=== PATIENT | male | born 1960 | race Caucasian/White ===

== ENCOUNTER 2019-09-04 12:38 | Inpatient (IN) | payer MEDICARE, MEDICAID ==
--- NOTE | 2019-09-04 12:46 | EDM.PDOC ---
ED HPI GENERAL MEDICAL PROBLEM - General Stated Complaint: EAR INFECTION, LETHARGIC Time Seen by Provider: 09/04/19 12:46 - History of Present Illness INITIAL COMMENTS - FREE TEXT/NARRATIVE: fever, decreased ilya x 3 days, pt with hx of frequent ear infections, history of alzheimer's, per NH staff pt is awake and talking most times, today lethargic. ED ROS GENERAL - Review of Systems Review Of Systems: Unable To Obtain Reason Not Obtained: Pt non responsive hx of alzheimer's ED EXAM, GENERAL - Physical Exam Exam: See Below Free Text/Narrative:: wbc 17.5 with left shift, ua positive for nit, mitesh, will given 1G rocephin in er. Discussed with PCP Dr. Bernstein who will admit to her service. Exam Limited By: Altered Mental Status General Appearance: Lethargic Eye Exam: Bilateral Eye: PERRL Ears: Normal External Exam, Normal Canal, Normal TMs Nose: Normal Inspection, Normal Mucosa, No Blood Head: Atraumatic, Normocephalic Respiratory/Chest: No Respiratory Distress, Lungs Clear, Normal Breath Sounds, No Accessory Muscle Use, Chest Non-Tender Cardiovascular: Normal Peripheral Pulses GI/Abdominal: Normal Bowel Sounds, Soft, Non-Tender, No Organomegaly, No Distention, No Abnormal Bruit, No Mass Extremities: Normal Inspection, Non-Tender, No Pedal Edema, Normal Capillary Refill Skin Exam: Warm, Dry, Intact, Normal Color, No Rash Course - Orders/Labs/Meds Orders: Active Orders 24 hr Category Date Time Status Admission Status [Patient Status] [ADT] Routine ADT 09/04/19 14:23 Ordered Chest 1V Frontal [CR] Stat Exams 09/04/19 14:22 Ordered CULTURE BLOOD [BC] Stat Lab 09/04/19 13:08 Received CULTURE BLOOD [BC] Stat Lab 09/04/19 13:13 Received CULTURE URINE [RM] Stat Lab 09/04/19 12:58 Received Sodium Chloride 0.9% [Normal Saline] 1,000 ml Med 09/04/19 13:00 Active IV ASDIRECTED cefTRIAXone [Rocephin] Med 09/04/19 14:15 Ordered 1 gm IVPUSH DAILY Blood Culture x2 Reflex Set [OM.PC] Stat Oth 09/04/19 12:57 Ordered Medication Orders Ceftriaxone Sodium (Rocephin) 1 gm IVPUSH DAILY [facility] Sodium Chloride (Normal Saline) 1,000 mls @ 125 mls/hr IV ASDIRECTED THAIS Last Admin: 09/04/19 12:52 Dose: 125 mls/hr Labs: Laboratory Tests 09/04/19 09/04/19 09/04/19 Range/Units 12:58 13:08 13:08 WBC 17.5 H (4.0-10.0) x10^3/uL RBC 3.64 L (4.5-6.0) x10^6/uL Hgb 12.0 L (14.0-18.0) g/dL Hct 36.6 L (40.0-52.0) % MCV 100.5 H (78.0-93.0) fL MCH 33.0 H (26.0-32.0) pg MCHC 32.8 (32.0-36.0) g/dL RDW Coeff of Lev 13.2 (10.0-15.0) % Plt Count 149 (130-400) x10^3/uL Neut % (Auto) 83.3 H (50.0-80.0) % Lymph % (Auto) 8.6 L (25.0-50.0) % Giles % (Auto) 7.9 (2.0-11.0) % Eos % (Auto) 0.1 (0.0-4.0) % Baso % (Auto) 0.1 L (0.2-1.2) % Sodium 144 (136-145) mmol/L Potassium 3.7 (3.5-5.1) mmol/L Chloride 106 (98-107) mmol/L Carbon Dioxide 28 (21-32) mmol/L Anion Gap 13.7 (10-20) mmol/L BUN 15 (7-18) mg/dL Creatinine 0.8 (0.70-1.30) mg/dL Est Cr Clr Drug Dosing TNP Estimated GFR (MDRD) > 60 Glucose 117 H (74-106) mg/dL Lactic Acid (0.4-2.0) mmol/L Calcium 9.9 (8.5-10.1) mg/dL Corrected Calcium 10.62 H (8.5-10.1) mg/dL Total Bilirubin 1.0 (0.2-1.0) mg/dL AST 18 (15-37) U/L ALT 20 (16-63) U/L Alkaline Phosphatase 90 (46-116) U/L Total Protein 7.2 (6.4-8.2) g/dL Albumin 3.1 L (3.4-5.0) g/dL Globulin 4.1 Albumin/Globulin Ratio 0.76 Urine Color Dark yellow H (YELLOW) Urine Appearance Cloudy H (CLEAR) Urine pH 6.0 (5.0-8.0) Ur Specific [place] >=1.030 Urine Protein 100 H (NEGATIVE) mg/dL Urine Glucose (UA) Negative (NEGATIVE) mg/dL Urine Ketones Negative (NEGATIVE) mg/dL Urine Occult Blood Moderate H (NEGATIVE) Urine Nitrite Positive H (NEGATIVE) Urine Bilirubin Small H (NEGATIVE) Urine Urobilinogen 0.2 (0.2) EU/dL Ur Leukocyte Esterase Small H (NEGATIVE) Urine RBC 20-30 H (NOT SEEN) /HPF Urine WBC 10-20 H (NOT SEEN) /HPF Ur Squamous Epith Cells Few H (NEGATIVE) /HPF Urine Bacteria Moderate H (NEGATIVE) /HPF Urine Mucus Few H (NEGATIVE) /LPF 09/04/19 Range/Units 13:08 WBC (4.0-10.0) x10^3/uL RBC (4.5-6.0) x10^6/uL Hgb (14.0-18.0) g/dL Hct (40.0-52.0) % MCV (78.0-93.0) fL MCH (26.0-32.0) pg MCHC (32.0-36.0) g/dL RDW Coeff of Lev (10.0-15.0) % Plt Count (130-400) x10^3/uL Neut % (Auto) (50.0-80.0) % Lymph % (Auto) (25.0-50.0) % Giles % (Auto) (2.0-11.0) % Eos % (Auto) (0.0-4.0) % Baso % (Auto) (0.2-1.2) % Sodium (136-145) mmol/L Potassium (3.5-5.1) mmol/L Chloride (98-107) mmol/L Carbon Dioxide (21-32) mmol/L Anion Gap (10-20) mmol/L BUN (7-18) mg/dL Creatinine (0.70-1.30) mg/dL Est Cr Clr Drug Dosing Estimated GFR (MDRD) Glucose (74-106) mg/dL Lactic Acid 1.1 (0.4-2.0) mmol/L Calcium (8.5-10.1) mg/dL Corrected Calcium (8.5-10.1) mg/dL Total Bilirubin (0.2-1.0) mg/dL AST (15-37) U/L ALT (16-63) U/L Alkaline Phosphatase (46-116) U/L Total Protein (6.4-8.2) g/dL Albumin (3.4-5.0) g/dL Globulin Albumin/Globulin Ratio Urine Color (YELLOW) Urine Appearance (CLEAR) Urine pH (5.0-8.0) Ur Specific Franklin Urine Protein (NEGATIVE) mg/dL Urine Glucose (UA) (NEGATIVE) mg/dL Urine Ketones (NEGATIVE) mg/dL Urine Occult Blood (NEGATIVE) Urine Nitrite (NEGATIVE) Urine Bilirubin (NEGATIVE) Urine Urobilinogen (0.2) EU/dL Ur Leukocyte Esterase (NEGATIVE) Urine RBC (NOT SEEN) /HPF Urine WBC (NOT SEEN) /HPF Ur Squamous Epith Cells (NEGATIVE) /HPF Urine Bacteria (NEGATIVE) /HPF Urine Mucus (NEGATIVE) /LPF Meds: Medications Generic Name Dose Route Start Last Admin Trade Name Freq PRN Reason Stop Dose Admin Ceftriaxone Sodium 1 gm 09/04/19 14:15 Rocephin IVPUSH DAILY [facility] Sodium Chloride 1,000 mls @ 125 mls/hr 09/04/19 13:00 09/04/19 12:52 Normal Saline IV 125 mls/hr ASDIRECTED THAIS Administration Departure - Departure Time of Disposition: 14:26 Disposition: Admitted As Inpatient 66 Condition: Fair Clinical Impression: UTI (urinary tract infection) - Discharge Information Referrals: Valarie Bernstein DO [Primary Care Provider] - Sepsis Event Note - Focused Exam Date Exam was Performed: 09/04/19 Time Exam was Performed: 14:26 - My Orders Last 24 Hours: My Active Orders 09/04/19 12:57 Blood Culture x2 Reflex Set [OM.PC] Stat 09/04/19 12:58 CULTURE URINE [RM] Stat 09/04/19 13:00 Sodium Chloride 0.9% [Normal Saline] 1,000 ml IV ASDIRECTED 09/04/19 13:08 CULTURE BLOOD [BC] Stat 09/04/19 13:13 CULTURE BLOOD [BC] Stat 09/04/19 14:15 cefTRIAXone [Rocephin] 1 gm IVPUSH DAILY 09/04/19 14:22 Chest 1V Frontal [CR] Stat 09/04/19 14:23 Admission Status [Patient Status] [ADT] Routine - Assessment/Plan Admission H&P: Please use this note as an admission H&P Last 24 Hours: My Active Orders 09/04/19 12:57 Blood Culture x2 Reflex Set [OM.PC] Stat 09/04/19 12:58 CULTURE URINE [RM] Stat 09/04/19 13:00 Sodium Chloride 0.9% [Normal Saline] 1,000 ml IV ASDIRECTED 09/04/19 13:08 CULTURE BLOOD [BC] Stat 09/04/19 13:13 CULTURE BLOOD [BC] Stat 09/04/19 14:15 cefTRIAXone [Rocephin] 1 gm IVPUSH DAILY 09/04/19 14:22 Chest 1V Frontal [CR] Stat 09/04/19 14:23 Admission Status [Patient Status] [ADT] Routine
[2019-09-04] MEDS: Sodium Chloride 0.9% 1,000 ML IV SCH ×3 (12:52→23:05)
[2019-09-04 13:47] LABS: CHLORIDE,CL 106 mmol/L (98-107); SODIUM,NA 144 mmol/L (136-145)
[2019-09-04 13:53] LABS: ANION GAP 13.7 mmol/L (10-20)
[2019-09-04] MEDS ORDERED: cefTRIAXone 1 GM Vial IVPUSH SCH (14:15)
--- NOTE | 2019-09-04 15:01 | CR ---
[id number] RAD/RAD Chest PA or AP 1V EXAM: FRONTAL CHEST INDICATION: RULE OUT INFECTION. COMPARISON: None. DISCUSSION: The heart is at upper limits of normal for size with borderline central vascular congestion. No infiltrates. A metallic object overlies the lower midline neck. IMPRESSION: 1. Borderline congestive heart failure. Alberto Zeng MD 09/04/19 1500 Thank you for allowing us to participate in the care of your patient.
[2019-09-04] MEDS ORDERED: Acetaminophen 650 MG Supp RECTAL ONE (15:02)
[2019-09-04] MEDS ORDERED: Bisacodyl 10 MG Supp RECTAL PRN (15:49)
[2019-09-04] MEDS ORDERED: Bisacodyl 5 MG Tab PO PRN (15:49)
[2019-09-04] MEDS ORDERED: Ibuprofen 200 MG Tab PO PRN (17:36)
[2019-09-04] MEDS: LORazepam 2 MG/ML SDV IVPUSH PRN (18:32)
[2019-09-04] MEDS: QUEtiapine 100 MG Tab PO SCH (19:43)
[2019-09-04] MEDS: traZODone 50 MG Tab PO SCH (19:43)
[2019-09-04] MEDS: Acetaminophen 325 MG Tab PO SCH (19:44)
[2019-09-04] MEDS: diphenhydrAMINE 25 MG Cap PO SCH (19:44)
[2019-09-04] MEDS: cefTRIAXone 1 GM Vial IVPUSH SCH (20:20)
--- NOTE | 2019-09-05 00:11 | HP ---
CHIEF COMPLAINT: Fever. HISTORY OF PRESENT ILLNESS: This is a 59-year-old resident of [facility] due to dementia, who has had a fever since Tuesday or 2 days. Yesterday, it was even up to 103, heart rate was 128. Today, it was 101.1. He had slept through the night. He received Tylenol. He could take fluids when offered. He did eat yesterday. He has had no cough. No vomiting. No bowel movement like for 4 days. No signs of a urine infection, but really cannot verbalize that. His urine has been quite concentrated. His lungs were clear. He otherwise does have a history of ear infections, but he just had pain all over per the nurse. Did not appear to be grabbing his ears. No drainage. They did not feel he had any swallowing difficulty. When he ambulated, he was quite unsteady. Recommendations were made to have him seen in the emergency room due to a sepsis workup. While there, it was discovered he likely had a UTI. He was moving his head. We did discuss with the after I saw him after workup that a lumbar puncture was not performed. She prefers the patient be treated with antibiotics, but avoid any aggressive treatments and focus on comfort as well. ALLERGIES: Include Levaquin, rash, hives; Augmentin, nausea, vomiting, diarrhea; and Demerol, fever, chills, and sweating. MEDICATION LIST: Reviewed from [facility]. It should be noted he recently started lamotrigine. Got his first dose 25 mg last night. He is also on Seroquel 200 three times a day, melatonin 10 mg daily, hydrocortisone cream, MiraLAX 17 g daily, Benadryl 3 times a day, senna 2 tabs twice a day, ammonium lactate cream to the feet, bisacodyl suppository, Zyprexa 30 mg daily, trazodone 25 in the morning and 100 at night, multivitamin daily, Prilosec daily, Tylenol 650 three times a day for pain, urea cream to the feet, Biofreeze gel, and albuterol inhaler as needed. PAST MEDICAL HISTORY: Includes the dementia with behavioral disturbance, frontotemporal, since around 2013, depression and anxiety, dysphagia. Reported no recent aspiration pneumonia, essential hypertension, but off medications due to hypotension. History of colon polyps, history of angina, history of smoking, Lewy body dementia reported, psychosis, seasonal allergies. SOCIAL HISTORY: The patient is . He moved to [facility] earlier this year. FAMILY HISTORY: Both parents are . His father had Alzheimer. His mother had dementia. REVIEW OF SYSTEMS: Unobtainable due to the patient's condition and mental status. PAST SURGICAL HISTORY: He had endoscopies, biopsies, colonoscopies, and diskectomy, cervical C6-7. PHYSICAL EXAMINATION: Vital Signs: On hospital admission, he did have a temp 101.5, pulse 117, blood pressure 152/76, respiratory rate 20, O2 of 18, he was 96% on room air. General: He was in mild distress. He was mostly not responsive. He was sort of trying to grab the urinal and urinate. Did open his eyes to verbal stimuli. His face was red and flushed. Heart: Regular rate and rhythm. S1, S2 without murmur. Lungs: Sounds are clear to auscultation on a limited exam due to patient effort. Abdomen: Nondistended. It is soft. Positive bowel sounds. Nontender. He did not grimace with pain when we moved his head, his neck, or his arms. Extremities: A few scabs, but no cellulitis or signs of infection. Genitourinary: His penis was examined. There is no drainage or discharge otherwise. Mental Status: He is completely disoriented. LABORATORY WORK: Shows white count 17.5, hemoglobin 12, platelets 149. Sodium 144, potassium 3.7, chloride 106, bicarb 28, BUN 15, creatinine 0.8, lactic 1.1, glucose 117, bilirubin 1, calcium 10.6, AST 18, ALT 20, alk phos 90, CRP 27.5, albumin 3.1. Urine did show 20-30 rbc's and 10-20 wbc's. This was not a cath specimen. It was dark yellow. DIAGNOSTIC DATA: Chest x-ray clear. No infiltrates. Blood cultures taken. ASSESSMENT: 1. Sepsis, likely source is a urinary tract infection. We will do a bladder scan. We will place his Rocephin at 1 g q.12 hours. 2. Dementia with behavioral disturbance. We will keep him on his home medications. There is concern that once he starts feeling better, he will start grabbing at things, trying to get out of bed. Therefore, we have some p.r.n. Ativan available. 3. History of hypertension. Blood pressure is mildly elevated. We will continue to monitor for now. He is getting IV fluids due to fevers and sepsis. 4. Lethargy likely due to infection. Discussed with his . We will see how he does over the next 12-24 hours. His ears were also inspected, which I forgot to mention in the physical exam. Right ear was clearly not infected. Left ear, mild redness, but no signs of obvious infection. Some wax was also in the canal. PLAN: The patient will be admitted for acute cares for sepsis and IV antibiotics for UTI. We will culture his urine. Blood cultures are pending. I am going to send off influenza screen as well as repeat his lactic acid. We will give him 1 more liter of fluids, Tylenol for fever and Motrin, DVT prophylaxis given his comfort care status, and hopefully this will be a short- term stay. We will hold off, but repeat lab work tomorrow and order some Lovenox or heparin if needed. Code level 5. Discussed with his . MARY: 09/04/2019 17:29:05 MODL: 09/05/2019 00:04:31 /[id number]
[2019-09-05] MEDS: Omeprazole 20 MG Cap.CR PO SCH (06:10)
[2019-09-05] MEDS: Sodium Chloride 0.9% 1,000 ML IV SCH (06:20)
[2019-09-05] MEDS: LORazepam 2 MG/ML SDV IVPUSH PRN ×4 (06:20→21:46)
[2019-09-05 07:16] LABS: CHLORIDE,CL 109 mmol/L (98-107); SODIUM,NA 146 mmol/L (136-145)
[2019-09-05 07:18] LABS: ANION GAP 15.9 mmol/L (10-20)
[2019-09-05] MEDS: QUEtiapine 100 MG Tab PO SCH ×3 (07:47→20:07)
[2019-09-05] MEDS: OLANZapine 10 MG Tab PO SCH ×2 (07:48→20:07)
[2019-09-05] MEDS: Acetaminophen 325 MG Tab PO SCH ×4 (07:50→21:47)
[2019-09-05] MEDS: traZODone 50 MG Tab PO SCH ×2 (07:50→20:06)
[2019-09-05] MEDS: diphenhydrAMINE 25 MG Cap PO SCH ×3 (07:51→20:07)
[2019-09-05] MEDS: Polyethylene Glycol 3350 Powder 17 GM Packet PO SCH (07:53)
[2019-09-05] MEDS ORDERED: Non-Formulary Medication 1 Each (Olanzapine [Olanzapine] 20 MG) PO SCH (08:00)
[2019-09-05] MEDS: cefTRIAXone 1 GM Vial IVPUSH SCH ×2 (08:43→20:08)
[2019-09-05] MEDS: Melatonin 3 MG Tab PO SCH ×2 (09:49→20:07)
[2019-09-05] MEDS: Enoxaparin 40 MG/0.4 ML Syringe SUBCUT SCH (09:54)
--- NOTE | 2019-09-05 10:06 | PN ---
Progress Note for LUANN LAZACNO Date: 09/05/2019 Room #: VM.218 SUBJECTIVE: This is hospital day #2 on a 59-year-old admitted with sepsis with likely source of a UTI. His influenza testing was negative. He was up and more alert, actually getting agitated, did get a dose of Ativan last evening and then one again this morning at 6 a.m. He is quite sleepy now. He only responds to painful stimuli. He is getting his IV antibiotic. He has been afebrile overnight. Bladder scan was negative per the nurse. He did eat 100% of his dinner last night. OBJECTIVE: Vital Signs: His temperature is 97.7, pulse 84, blood pressure 134/81, respiratory rate 18, O2 is 96 on room air. T-max here 101.5 at 5 [address] on [address] floor. There was also a 105 charted at around 2:30, however, nurses rechecked with a different device and it was only 99.6. HEART: Regular rate and rhythm. S1, S2, without murmur. LUNGS: Lung sounds are clear to auscultation, but on limited effort. ABDOMEN: Nondistended. He did moan slightly when I palpated it, but it was soft. He also moaned when I touched his chest wall, his arms. Nursing staff had reported at the [facility] he had pain all over as well. EXTREMITIES: Otherwise warm, dry, no edema. MENTAL STATUS: He is lethargic. He has dementia at baseline. LABORATORY DATA: Lab work shows white count improved to 10.7, hemoglobin 11.4, platelets 155. Sodium 146, potassium 3.9, chloride 109, bicarb 25, BUN 12, creatinine 0.6, glucose 108, calcium 9.4. His CRP was up to 27.5 yesterday. Urine culture is pending. ASSESSMENT: 1. Sepsis due to a urinary tract infection. We will continue the IV Rocephin. Due to his size, initially he could have gotten 2 g, so I changed him to 1 g q.12 hours. 2. Dementia with behavioral disturbance. He is on his home medications. He was supposed to continue on lamotrigine which he only got 1 dose. We held that here. He can restart it on discharge. 3. History of hypertension. His blood pressures have been normal now since admission. 4. Lethargy due to infection and probably some Ativan this morning. We will continue current cares. PLAN: The patient will continue acute cares with IV antibiotics of Rocephin. He will be on fluids for about 3 more hours. Hopefully, he will be more up and alert then and drinking. We will await the urine culture to adjust antibiotics. He has Tylenol and Motrin available for fevers. I will start him on Lovenox 40 mg daily for DVT prophylaxis. Repeat lab work planned for tomorrow. He does have some mild anemia and mild hypernatremia, but we are going to hold off on any half-normal saline and push oral liquids. MKA: 09/05/2019 08:56:21 MODL: 09/05/2019 09:54:37 /[id number]
[2019-09-06] MEDS: Omeprazole 20 MG Cap.CR PO SCH (06:00)
[2019-09-06 07:06] LABS: CHLORIDE,CL 108 mmol/L (98-107); SODIUM,NA 146 mmol/L (136-145)
[2019-09-06 07:07] LABS: ANION GAP 16.9 mmol/L (10-20)
[2019-09-06] MEDS: Polyethylene Glycol 3350 Powder 17 GM Packet PO SCH (08:59)
[2019-09-06] MEDS: Enoxaparin 40 MG/0.4 ML Syringe SUBCUT SCH (09:00)
[2019-09-06] MEDS: diphenhydrAMINE 25 MG Cap PO SCH ×3 (09:00→19:35)
[2019-09-06] MEDS: QUEtiapine 100 MG Tab PO SCH ×3 (09:00→19:35)
[2019-09-06] MEDS: traZODone 50 MG Tab PO SCH ×2 (09:00→19:35)
[2019-09-06] MEDS: Acetaminophen 325 MG Tab PO SCH ×3 (09:00→19:35)
[2019-09-06] MEDS: cefTRIAXone 1 GM Vial IVPUSH SCH ×2 (09:01→21:07)
[2019-09-06] MEDS: OLANZapine 10 MG Tab PO SCH ×2 (09:01→19:35)
--- NOTE | 2019-09-06 09:53 | PCM.PN ---
- General Info Date of Service: 09/06/19 Subjective Update: 59 yo male hospital day #3 admitted for sepsis secondary to UTI. He is not able to give any history. Nursing staff note that he had an uneventful day yesterday. He has been eating and drinking ok with meals. He has periods of alertness and periods of sleepiness. His intake was much better yesterday in comparison to the day prior. He did have a fever last evening. - Review of Systems Systems Review Comment:: Unable to obtain due to patient's underlying dementia. - Patient Data Vitals - Most Recent: Last Vital Signs Temp 37.4 C 09/06/19 09:42 Pulse 80 09/06/19 09:42 Resp 20 09/06/19 09:42 BP 103/65 09/06/19 09:42 Pulse Ox 93 L 09/06/19 09:42 Weight - Most Recent: 83.915 kg I&O - Last 24 Hours: Intake & Output 09/05/19 09/06/19 09/06/19 22:59 06:59 14:59 Intake Total 670 300 Balance 670 300 Lab Results Last 24 Hours: Laboratory Results - last 24 hr 09/06/19 09/06/19 Range/Units 06:31 06:31 WBC 7.9 (4.0-10.0) x10^3/uL RBC 3.21 L (4.5-6.0) x10^6/uL Hgb 10.5 L (14.0-18.0) g/dL Hct 31.9 L (40.0-52.0) % MCV 99.4 H (78.0-93.0) fL MCH 32.7 H (26.0-32.0) pg MCHC 32.9 (32.0-36.0) g/dL RDW Coeff of Lev 11.8 (10.0-15.0) % Plt Count 192 (130-400) x10^3/uL Neut % (Auto) 74.5 (50.0-80.0) % Lymph % (Auto) 16.7 L (25.0-50.0) % Worth % (Auto) 6.2 (2.0-11.0) % Eos % (Auto) 2.3 (0.0-4.0) % Baso % (Auto) 0.3 (0.2-1.2) % Sodium 146 H (136-145) mmol/L Potassium 3.9 (3.5-5.1) mmol/L Chloride 108 H (98-107) mmol/L Carbon Dioxide 25 (21-32) mmol/L Anion Gap 16.9 (10-20) mmol/L BUN 15 (7-18) mg/dL Creatinine 0.6 L (0.70-1.30) mg/dL Est Cr Clr Drug Dosing 157.34 mL/min Estimated GFR (MDRD) > 60 Glucose 106 (74-106) mg/dL Calcium 9.4 (8.5-10.1) mg/dL Wade Results Last 24 Hours: Microbiology 09/04/19 12:58 Urine Culture - Final Urine, Catheterized Escherichia Coli 09/04/19 13:13 Aerobic Blood Culture - Preliminary Blood - Venous - Lab Draw NO GROWTH AFTER 1 DAY Anaerobic Blood Culture - Preliminary NO GROWTH AFTER 1 DAY 09/04/19 13:08 Aerobic Blood Culture - Preliminary Blood - Venous NO GROWTH AFTER 1 DAY Anaerobic Blood Culture - Preliminary NO GROWTH AFTER 1 DAY 09/04/19 16:50 MRSA Surveillance Culture - Final Nasal, Unspecified NO MRSA ISOLATED Med Orders - Current: Current Medications Acetaminophen (Tylenol) 650 mg PO TID [facility] Last Admin: 09/06/19 09:00 Dose: 650 mg Bisacodyl (Dulcolax) 5 mg PO ASDIRECTED PRN PRN Reason: Constipation Bisacodyl (Dulcolax) 10 mg RECTAL ASDIRECTED PRN PRN Reason: Constipation Ceftriaxone Sodium (Rocephin) 1 gm IVPUSH Q12H [facility] Last Admin: 09/06/19 09:01 Dose: 1 gm Diphenhydramine HCl (Benadryl) 25 mg PO TID [facility] Last Admin: 09/06/19 09:00 Dose: 25 mg Enoxaparin Sodium (Lovenox) 40 mg SUBCUT Q24H [facility] Last Admin: 09/06/19 09:00 Dose: 40 mg Ibuprofen (Motrin) 600 mg PO Q6H PRN PRN Reason: PAIN Lorazepam (Ativan) 1 mg IVPUSH Q4H PRN PRN Reason: Anxiety Last Admin: 09/05/19 21:46 Dose: 1 mg Melatonin (Melatonin) 9 mg PO BEDTIME [facility] Last Admin: 09/05/19 20:07 Dose: 9 mg Olanzapine (Zyprexa) 10 mg PO DAILY [facility] Last Admin: 09/06/19 09:01 Dose: 10 mg Olanzapine (Zyprexa) 10 mg PO BEDTIME [facility] Last Admin: 09/05/19 20:07 Dose: 10 mg Omeprazole (Omeprazole) 20 mg PO DAILY@0700 [facility] Last Admin: 09/06/19 06:00 Dose: 20 mg Polyethylene Glycol (Miralax) 17 gm PO DAILY [facility] Last Admin: 09/06/19 08:59 Dose: 17 gm Quetiapine Fumarate (Seroquel) 200 mg PO TID [facility] Last Admin: 09/06/19 09:00 Dose: 200 mg Senna/Docusate Sodium (Senna Plus) 2 tab PO BID [facility] Last Admin: 09/06/19 09:00 Dose: 2 tab Trazodone HCl (Trazodone) 25 mg PO DAILY [facility] Last Admin: 09/06/19 09:00 Dose: 25 mg Trazodone HCl (Trazodone) 100 mg PO BEDTIME [facility] Last Admin: 09/05/19 20:06 Dose: 100 mg Discontinued Medications Acetaminophen (Tylenol) 650 mg RECTAL NOW ONE Stop: 09/04/19 15:03 Last Admin: 09/04/19 18:32 Dose: Not Given Ceftriaxone Sodium (Rocephin) 1 gm IVPUSH DAILY [facility] Last Admin: 09/04/19 14:12 Dose: 1 gm Sodium Chloride (Normal Saline) 1,000 mls @ 125 mls/hr IV ASDIRECTED [facility] Last Admin: 09/05/19 06:20 Dose: 125 mls/hr Non-Formulary Medication (Olanzapine [Olanzapine]) 20 mg PO DAILY [facility] - Exam General: No Acute Distress, Other (Laying comfortably in bed until palpation of his abdomen at which time he does move in the bed) HEENT: Mucous Membr. Moist/[place] Neck: Supple, Trachea Midline, No Thyromegaly. No: Lymphadenopathy Lungs: Clear to Auscultation, Normal Respiratory Effort Cardiovascular: Regular Rate, Regular Rhythm, No Murmurs GI/Abdominal Exam: Normal Bowel Sounds, Soft, Non-Tender, No Organomegaly, No Distention, No Mass Extremities: Non-Tender, No Pedal Edema, Normal Capillary Refill Peripheral Pulses: 2+: Radial (L), Radial (R) Skin: Warm, Dry, Intact Sepsis Event Note - Evaluation Sepsis Screening Result: No Definite Risk - Focused Exam Vital Signs: Vital Signs Temp Temp Temp Pulse Resp BP Pulse Ox 09/06/19 09:42 37.4 C 80 20 103/65 93 L 09/06/19 05:05 36.8 C 79 20 113/62 94 L 09/06/19 01:52 36.6 C 82 19 107/60 93 L 09/05/19 22:17 37.1 C Date Exam was Performed: 09/06/19 Time Exam was Performed: 09:47 - Problem List & Annotations (1) Sepsis SNOMED Code(s): 69164571 Code(s): A41.9 - SEPSIS, UNSPECIFIED ORGANISM Status: Acute Current Visit : Yes Qualifiers: Sepsis type: sepsis due to unspecified organism Sepsis acute organ dysfunction status: without acute organ dysfunction Qualified Code(s): A41.9 - Sepsis, unspecified organism (2) UTI (urinary tract infection) SNOMED Code(s): 71781867 Code(s): N39.0 - URINARY TRACT INFECTION, SITE NOT SPECIFIED Status: Acute Current Visit: Yes Qualifiers: Urinary tract infection type: site unspecified Hematuria presence: with hematuria Qualified Code(s): N39.0 - Urinary tract infection, site not specified; R31.9 - Hematuria, unspecified (3) Dementia SNOMED Code(s): 47886520 Code(s): F03.90 - UNSPECIFIED DEMENTIA WITHOUT BEHAVIORAL DISTURBANCE Status: Chronic Current Visit: Yes Qualifiers: Dementia type: unspecified type Dementia behavioral disturbance: with behavioral disturbance Qualified Code(s): F03.91 - Unspecified dementia with behavioral disturbance (4) Lethargy SNOMED Code(s): 509546911 Code(s): R53.83 - OTHER FATIGUE Status: Acute Current Visit: Yes (5) Hypernatremia SNOMED Code(s): 224710454 Code(s): E87.0 - HYPEROSMOLALITY AND HYPERNATREMIA Status: Acute Current Visit: Yes (6) Anemia SNOMED Code(s): 556434477 Code(s): D64.9 - ANEMIA, UNSPECIFIED Status: Acute Current Visit: Yes Qualifiers: Anemia type: unspecified type Qualified Code(s): D64.9 - Anemia, unspecified (7) Hypertension SNOMED Code(s): 04770411 Code(s): I10 - ESSENTIAL (PRIMARY) HYPERTENSION Status: Chronic Current Visit: Yes Qualifiers: Hypertension type: essential hypertension Qualified Code(s): I10 - Essential (primary) hypertension - Problem List Review Problem List Initiated/Reviewed/Updated: Yes - My Orders Last 24 Hours: My Active Orders 09/07/19 05:11 BASIC METABOLIC PANEL,BMP [CHEM] Routine CBC WITH AUTO DIFF [HEME] Routine - Assessment Assessment:: 59 yo male hospital day #3 with sepsis secondary to UTI. Labs are improved significantly from admission. He is getting more alert but is apparently not back to his baseline yet. - Plan Plan:: #1 Sepsis, resolved - He is no longer meeting sepsis criteria at this time. - Is secondary to UTI. See below. #2 UTI - Urine culture shows lewis-susceptible E. coli. - Patient had a fever last evening; however, this was within 48 hours of starting antibiotics and his culture shows susceptibility to ceftriaxone. Therefore, will continue the ceftriaxone at this time. - Plan will be to switch him to oral antibiotics once he has been afebrile for > 24 hours. #3 Dementia with behavioral disturbance #4 Lethargy - His mental status is slowly and steadily improving. - Home medications have been continued. #5 Hypernatremia, mild #6 Anemia - Labs are stable today. - Will continue to monitor daily. #7 Hypertension - History of this but BP's have been low to normal since admission. Given fever last evening, he will remain on acute today - very likely will be [facility] No changes in care plan today. Lovenox for VTE prophylaxis. Patient is DNR/DNI/comfort measures - PCP confirmed with his on admission.
[2019-09-06] MEDS: LORazepam 2 MG/ML SDV IVPUSH PRN (16:53)
[2019-09-06] MEDS: Melatonin 3 MG Tab PO SCH (19:34)
[2019-09-07] MEDS: Omeprazole 20 MG Cap.CR PO SCH (06:13)
[2019-09-07 06:34] LABS: CHLORIDE,CL 108 mmol/L (98-107); SODIUM,NA 145 mmol/L (136-145)
[2019-09-07] MEDS: QUEtiapine 100 MG Tab PO SCH (07:42)
[2019-09-07] MEDS: diphenhydrAMINE 25 MG Cap PO SCH (07:42)
[2019-09-07] MEDS: OLANZapine 10 MG Tab PO SCH (07:42)
[2019-09-07] MEDS: Polyethylene Glycol 3350 Powder 17 GM Packet PO SCH (07:42)
[2019-09-07] MEDS: traZODone 50 MG Tab PO SCH (07:43)
[2019-09-07] MEDS: Acetaminophen 325 MG Tab PO SCH (07:43)
[2019-09-07] MEDS: Enoxaparin 40 MG/0.4 ML Syringe SUBCUT SCH (08:05)
[2019-09-07] MEDS: cefTRIAXone 1 GM Vial IVPUSH SCH (08:05)
--- NOTE | 2019-09-07 08:38 | PCM.DCSUM1 ---
Discharge Summary - Hospital Course Brief History: Mr. Howell is a 59 yo male who was admitted with a UTI after presenting with lethargy and fever. - Discharge Data Discharge Date: 09/07/19 Discharge Disposition: DC/Tfer to [facility] Condition: Good - Referral to Home Health Primary Care Physician: Valarie Bernstein DO - Discharge Diagnosis/Problem(s) (1) Sepsis SNOMED Code(s): 27754536 ICD Code: A41.9 - SEPSIS, UNSPECIFIED ORGANISM Status: Acute Current Visit: Yes Qualifiers: Sepsis type: sepsis due to unspecified organism Sepsis acute organ dysfunction status: without acute organ dysfunction Qualified Code(s): A41.9 - Sepsis, unspecified organism (2) UTI (urinary tract infection) SNOMED Code(s): 89592998 ICD Code: N39.0 - URINARY TRACT INFECTION, SITE NOT SPECIFIED Status: Acute Current Visit: Yes Qualifiers: Urinary tract infection type: site unspecified Hematuria presence: with hematuria Qualified Code(s): N39.0 - Urinary tract infection, site not specified; R31.9 - Hematuria, unspecified (3) Dementia SNOMED Code(s): 57845103 ICD Code: F03.90 - UNSPECIFIED DEMENTIA WITHOUT BEHAVIORAL DISTURBANCE Status: Chronic Current Visit: Yes Qualifiers: Dementia type: unspecified type Dementia behavioral disturbance: with behavioral disturbance Qualified Code(s): F03.91 - Unspecified dementia with behavioral disturbance (4) Lethargy SNOMED Code(s): 871471129 ICD Code: R53.83 - OTHER FATIGUE Status: Acute Current Visit: Yes (5) Hypernatremia SNOMED Code(s): 664507424 ICD Code: E87.0 - HYPEROSMOLALITY AND HYPERNATREMIA Status: Acute Current Visit: Yes (6) Anemia SNOMED Code(s): 362622009 ICD Code: D64.9 - ANEMIA, UNSPECIFIED Status: Acute Current Visit: Yes Qualifiers: Anemia type: unspecified type Qualified Code(s): D64.9 - Anemia, unspecified (7) Hypertension SNOMED Code(s): 10907065 ICD Code: I10 - ESSENTIAL (PRIMARY) HYPERTENSION Status: Chronic Current Visit: Yes Qualifiers: Hypertension type: essential hypertension Qualified Code(s): I10 - Essential (primary) hypertension - Patient Summary/Data Operative Procedure(s) Performed: none Complications: none Consults: none Labs Pending at D/C: none Recommended Follow-up Testing/Procedures: none Planned Operative Procedure(s) after DC: none Hospital Course: The patient was admitted and started on IV ceftriaxone. He was also given IV fluids as he was not alert enough to eat and drinking. His mental status progressively improved and he is back to his baseline as of this morning. He has been eating and drinking well for the past 24 hours and has been swallowing his medications without any issues. His IV fluids were stopped nearly 48 hours ago. His urine culture came back showing E. coli that is lewis-susceptible. He was continued on the IV antibiotics throughout his hospital stay given fever in the late afternoon 06/17. He will be transitioned to cefdinir (given tolerance of ceftriaxone despite allergy to amoxicillin) to complete a 7 day course. - Patient Instructions Diet: Usual Diet as Tolerated Driving: Do Not Drive Showering/Bathing: May Shower Notify Provider of: Fever - Discharge Plan *PRESCRIPTION DRUG MONITORING PROGRAM REVIEWED*: No *COPY OF PRESCRIPTION DRUG MONITORING REPORT IN PATIENT ADALGISA: No Prescriptions/Med Rec: Cefdinir 300 mg PO BID #6 capsule Home Medications: Home Meds Acetaminophen [Tylenol] 650 mg PO TID 09/04/19 [History] Albuterol [Proventil HFA] 2 puff INH Q4H PRN 09/04/19 [History] Ammonium Lactate 1 applic TOP DAILY PRN 09/04/19 [History] Bisacodyl 5 mg PO ASDIRECTED PRN 09/04/19 [History] Bisacodyl 10 mg RC ASDIRECTED PRN 09/04/19 [History] Hydrocortisone [Hydrocortisone 1% Crm] 1 applic TOP DAILY 09/04/19 [History] Melatonin 10 mg PO BEDTIME 09/04/19 [History] Menthol [Biofreeze] 1 applic TOP QID PRN 09/04/19 [History] Multivitamin [Daily Multiple Vitamin] 1 tab PO DAILY 09/04/19 [History] OLANZapine [Olanzapine] 10 mg PO DAILY 09/04/19 [History] OLANZapine [Olanzapine] 20 mg PO DAILY 09/04/19 [History] Omeprazole 20 mg PO DAILY@0700 09/04/19 [History] Polyethylene Glycol 3350 [MiraLAX] 17 gm PO DAILY 09/04/19 [History] QUEtiapine Fumarate [Seroquel] 200 mg PO TID 09/04/19 [History] Sennosides/Docusate Sodium [Senna Plus 8.6-50 mg Tablet] 2 tab PO BID 09/04/19 [ History] Urea [Urea 20% Crm] 1 applic TOP Q48H PRN 09/04/19 [History] diphenhydrAMINE HCl [Benadryl Allergy] 25 mg PO TID 09/04/19 [History] lamoTRIgine [Lamotrigine] 25 mg PO DAILY 09/04/19 [History] traZODone HCl [Trazodone HCl] 25 mg PO DAILY 09/04/19 [History] traZODone HCl [Trazodone HCl] 100 mg PO BEDTIME 09/04/19 [History] Cefdinir 300 mg PO BID #6 capsule 09/07/19 [Rx] Forms: ED Department Discharge Referrals: Valarie Bernstein DO [Primary Care Provider] - - Discharge Summary/Plan Comment DC Time >30 min.: No - General Info Date of Service: 09/07/19 Subjective Update: 59 yo hospital day #4 for sepsis secondary to UTI. Patient is not able to give any history. Nursing staff note he is alert and acting like his usual self this morning. He has been able to eat and drink without any issues over the past 24 hours. No fever since late in the day 09/05. - Review of Systems Systems Review Comment: Unable to obtain due to severe underlying dementia - Patient Data Vitals - Most Recent: Last Vital Signs Temp 37.1 C 09/07/19 05:05 Pulse 71 09/07/19 05:05 Resp 18 09/07/19 05:05 BP 119/69 09/07/19 05:05 Pulse Ox 97 09/07/19 05:05 Weight - Most Recent: 83.915 kg I&O - Last 24 hours: Intake & Output 09/06/19 09/07/19 09/07/19 22:59 06:59 14:59 Intake Total 120 300 Balance 120 300 Lab Results - Last 24 hrs: Laboratory Results - last 24 hr 09/07/19 09/07/19 Range/Units 06:13 06:13 WBC 5.6 (4.0-10.0) x10^3/uL RBC 3.13 L (4.5-6.0) x10^6/uL Hgb 10.4 L (14.0-18.0) g/dL Hct 31.1 L (40.0-52.0) % MCV 99.4 H (78.0-93.0) fL MCH 33.2 H (26.0-32.0) pg MCHC 33.4 (32.0-36.0) g/dL RDW Coeff of Lev 11.7 (10.0-15.0) % Plt Count 191 (130-400) x10^3/uL Neut % (Auto) 60.6 (50.0-80.0) % Lymph % (Auto) 25.5 (25.0-50.0) % [place] % (Auto) 8.5 (2.0-11.0) % Eos % (Auto) 5.0 H (0.0-4.0) % Baso % (Auto) 0.4 (0.2-1.2) % Sodium 145 (136-145) mmol/L Potassium 4.0 (3.5-5.1) mmol/L Chloride 108 H (98-107) mmol/L Carbon Dioxide 27 (21-32) mmol/L Anion Gap 14.0 (10-20) mmol/L BUN 13 (7-18) mg/dL Creatinine 0.6 L (0.70-1.30) mg/dL Est Cr Clr Drug Dosing 157.34 mL/min Estimated GFR (MDRD) > 60 Glucose 102 (74-106) mg/dL Calcium 9.6 (8.5-10.1) mg/dL MARQUIS Results - Last 24 hrs: Microbiology 09/04/19 13:13 Aerobic Blood Culture - Preliminary Blood - Venous - Lab Draw NO GROWTH AFTER 2 DAYS Anaerobic Blood Culture - Preliminary NO GROWTH AFTER 2 DAYS 09/04/19 13:08 Aerobic Blood Culture - Preliminary Blood - Venous NO GROWTH AFTER 2 DAYS Anaerobic Blood Culture - Preliminary NO GROWTH AFTER 2 DAYS 09/04/19 12:58 Urine Culture - Final Urine, Catheterized Escherichia Coli Med Orders - Current: Current Medications Acetaminophen (Tylenol) 650 mg PO TID THAIS Last Admin: 09/07/19 07:43 Dose: 650 mg Bisacodyl (Dulcolax) 5 mg PO ASDIRECTED PRN PRN Reason: Constipation Last Admin: 09/07/19 07:42 Dose: 5 mg Bisacodyl (Dulcolax) 10 mg RECTAL ASDIRECTED PRN PRN Reason: Constipation Ceftriaxone Sodium (Rocephin) 1 gm IVPUSH Q12H [facility] Last Admin: 09/07/19 08:05 Dose: 1 gm Diphenhydramine HCl (Benadryl) 25 mg PO TID [facility] Last Admin: 09/07/19 07:42 Dose: 25 mg Enoxaparin Sodium (Lovenox) 40 mg SUBCUT Q24H [facility] Last Admin: 09/07/19 08:05 Dose: 40 mg Ibuprofen (Motrin) 600 mg PO Q6H PRN PRN Reason: PAIN Lorazepam (Ativan) 1 mg IVPUSH Q4H PRN PRN Reason: Anxiety Last Admin: 09/06/19 16:53 Dose: 1 mg Melatonin (Melatonin) 9 mg PO BEDTIME [facility] Last Admin: 09/06/19 19:34 Dose: 9 mg Olanzapine (Zyprexa) 10 mg PO DAILY [facility] Last Admin: 09/07/19 07:42 Dose: 10 mg Olanzapine (Zyprexa) 10 mg PO BEDTIME [facility] Last Admin: 09/06/19 19:35 Dose: 10 mg Omeprazole (Omeprazole) 20 mg PO DAILY@0700 [facility] Last Admin: 09/07/19 06:13 Dose: 20 mg Polyethylene Glycol (Miralax) 17 gm PO DAILY [facility] Last Admin: 09/07/19 07:42 Dose: 17 gm Quetiapine Fumarate (Seroquel) 200 mg PO TID [facility] Last Admin: 09/07/19 07:42 Dose: 200 mg Senna/Docusate Sodium (Senna Plus) 2 tab PO BID [facility] Last Admin: 09/07/19 07:42 Dose: 2 tab Trazodone HCl (Trazodone) 25 mg PO DAILY [facility] Last Admin: 09/07/19 07:43 Dose: 25 mg Trazodone HCl (Trazodone) 100 mg PO BEDTIME [facility] Last Admin: 09/06/19 19:35 Dose: 100 mg Discontinued Medications Acetaminophen (Tylenol) 650 mg RECTAL NOW ONE Stop: 09/04/19 15:03 Last Admin: 09/04/19 18:32 Dose: Not Given Ceftriaxone Sodium (Rocephin) 1 gm IVPUSH DAILY [facility] Last Admin: 09/04/19 14:12 Dose: 1 gm Sodium Chloride (Normal Saline) 1,000 mls @ 125 mls/hr IV ASDIRECTED [facility] Last Admin: 09/05/19 06:20 Dose: 125 mls/hr Non-Formulary Medication (Olanzapine [Olanzapine]) 20 mg PO DAILY THAIS - Exam General: Reports: Alert, No Acute Distress HEENT: Reports: Mucous Membr. Moist/[place] Neck: Reports: Supple, Trachea Midline, No Thyromegaly. Denies: Lymphadenopathy Lungs: Reports: Clear to Auscultation, Normal Respiratory Effort Cardiovascular: Reports: Regular Rate, Regular Rhythm, No Murmurs GI/Abdominal Exam: Normal Bowel Sounds, Soft, Non-Tender, No Organomegaly, No Distention, No Mass Extremities: Non-Tender, No Pedal Edema, Normal Capillary Refill Skin: Reports: Warm, Dry, Intact
== END 2019-09-07 10:30 | DRG 872 ==
LOC: VM.ED 12:38 → VM.MS 14:23
PROVIDERS: ADMIT Internal Medicine; ATTEND Internal Medicine
DX: A41.9 Sepsis, unspecified organism (principal); N39.0 Urinary tract infection, site not specified; F02.80 Dementia in other diseases classified elsewhere, unspecified severity, without behavioral disturbance, psychotic disturbance, mood disturbance, and anxiety; E87.0 Hyperosmolality and hypernatremia; F02.81 Dementia in other diseases classified elsewhere, unspecified severity, with behavioral disturbance; R31.9 Hematuria, unspecified; D64.9 Anemia, unspecified; I10 Essential (primary) hypertension; B96.20 Unspecified Escherichia coli [E. coli] as the cause of diseases classified elsewhere; Z66 Do not resuscitate; F32.9 Major depressive disorder, single episode, unspecified; G31.83 Neurocognitive disorder with Lewy bodies; F41.9 Anxiety disorder, unspecified; Z86.010 Personal history of colon polyps; Z87.891 Personal history of nicotine dependence; Z79.899 Other long term (current) drug therapy; Z88.1 Allergy status to other antibiotic agents; Z88.8 Allergy status to other drugs, medicaments and biological substances
CPT/HCPCS: 36415; 80053; 81001; 83605; 85025; 87040 ×2; 87086; 87088; 87186; 99283; 99285; J0696; J7030; 51798; 71045; 80048; 86140; 87804; 87804-59; A9270-GY; J1650; J2060

== ENCOUNTER 2020-02-25 11:46 | Inpatient (IN) | payer MEDICARE, MEDICAID, OTHER ==
[~2020-02-25 11:46] MED LIST: Clindamycin Phosphate 900 MG in Sodium Chloride 0.9% 100 ML IV ONE
--- NOTE | 2020-02-25 11:50 | EDM.PDOC ---
ED HPI GENERAL MEDICAL PROBLEM - General Chief Complaint: Respiratory Problem Time Seen by Provider: 02/25/20 11:10 Source of Information: Reports: EMS, Residential Records History Limitations: Reports: Altered Mental Status. Denies: No Limitations - History of Present Illness INITIAL COMMENTS - FREE TEXT/NARRATIVE: Patient brought him to the ER via EMS secondary to vomiting multiple times last night and this morning this a.m. patient was noted to be having shortness of breath and sats in the 70s. EMS was called he was placed on nonrebreather mask at 4 L/min sats into the 80s respiratory rate 36. Patient is nonverbal which is his baseline but per EMS they states he is usually active and coherent whereas today he is more somnolent Duration: Hour(s): Treatments [employer]ENT: Reports: Oxygen - Related Data Allergies Allergy/AdvReac Type Severity Reaction Status Date / Time amoxicillin [From Augmentin] Allergy Other Verified 02/25/20 11:52 clavulanic acid Allergy Other Verified 02/25/20 11:52 [From Augmentin] levofloxacin [From Levaquin] Allergy Other Verified 02/25/20 11:52 meperidine [From Demerol] Allergy Other Verified 02/25/20 11:52 Home Meds: Home Meds Acetaminophen [Tylenol] 650 mg PO TID 09/04/19 [History] Albuterol [Proventil HFA] 2 puff INH Q4H PRN 09/04/19 [History] Ammonium Lactate 1 applic TOP DAILY PRN 09/04/19 [History] Melatonin 10 mg PO BEDTIME 09/04/19 [History] Menthol [Biofreeze] 1 applic TOP QID PRN 09/04/19 [History] Multivitamin [Daily Multiple Vitamin] 1 tab PO DAILY 09/04/19 [History] OLANZapine [Olanzapine] 10 mg PO DAILY 09/04/19 [History] OLANZapine [Olanzapine] 20 mg PO BEDTIME 09/04/19 [History] Omeprazole 20 mg PO Q48H 09/04/19 [History] QUEtiapine Fumarate [Seroquel] 200 mg PO TIDMEALS 09/04/19 [History] Sennosides/Docusate Sodium [Senna Plus 8.6-50 mg Tablet] 2 tab PO BID 09/04/19 [ History] bisacodyL [Bisacodyl] 5 mg PO Q3D PRN 09/04/19 [History] bisacodyL [Bisacodyl] 10 mg RC Q4D PRN 09/04/19 [History] diphenhydrAMINE HCL [Benadryl Allergy] 25 mg PO BID 09/04/19 [History] lamoTRIgine [Lamotrigine] 100 mg PO DAILY 09/04/19 [History] polyethylene glycoL 3350 [MiraLAX] 17 gm PO DAILY 09/04/19 [History] traZODone HCl [Trazodone HCl] 25 mg PO DAILY 09/04/19 [History] traZODone HCl [Trazodone HCl] 100 mg PO BEDTIME 09/04/19 [History] Magnesium Hydroxide [Milk of Magnesia] 30 ml PO DAILY PRN 02/25/20 [History] QUEtiapine [SEROquel] 400 mg PO BEDTIME 02/25/20 [History] clindamycin HCL [Clindamycin HCl] 300 mg PO TID 2 Days #6 capsule 02/27/20 [Rx] Past Medical History HEENT History: Reports: Allergic Rhinitis Cardiovascular History: Reports: Hypertension Respiratory History: Reports: Asthma Gastrointestinal History: Reports: Chronic Constipation Musculoskeletal History: Reports: Other (See Below) Other Musculoskeletal History: low back pain Neurological History: Reports: Other (See Below) Other Neuro History: dementia with lewy bodies. unspecified pyschosis not due to a substance or known physiological condition. 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 Denies: Dyspnea on Exertion, Edema, Syncope GI/Abdominal: Reports: Diarrhea, Vomiting Skin: Reports: No Symptoms Neurological: Reports: No Symptoms Psychiatric: Reports: No Symptoms Hematologic/Lymphatic: Reports: No Symptoms ED EXAM, GENERAL - Physical Exam Exam: See Below Free Text/Narrative:: Patient upon arrival noted to be in mild respiratory distress he is a code 2 respiratory to 36 sats 86% there is audible coarse rhonchi notedon the nonrebreather mildly tachycardic at 116 he meets course for sepsis appropriate labs will be drawn antibiotics started with clindamycin noted patient is nonverbal although he is giving incoherent mumbling sounds he is moving all extremities He has moist mucous membranes and normal skin turgor Exam Limited By: Respiratory Distress General Appearance: Alert, WD/WN, Mild Distress. No: No Apparent Distress Eye Exam: Bilateral Eye: PERRL Ears: Normal External Exam, Normal Canal Nose: Normal Inspection, Normal Mucosa Throat/Mouth: Normal Inspection, Normal Lips, Normal Teeth, Normal Gums, Normal Oropharynx, No Airway Compromise Head: Atraumatic, Normocephalic Neck: Normal Inspection, Supple, Non-Tender, Full Range of Motion Respiratory/Chest: No Accessory Muscle Use, Rhonchi. No: No Respiratory Distress, Lungs Clear, Normal Breath Sounds Cardiovascular: Normal Peripheral Pulses, Regular Rate, Rhythm, No Edema, No Gallop, No JVD, No Murmur, Tachycardia GI/Abdominal: Normal Bowel Sounds, Soft, Non-Tender, No Organomegaly, No Distention, Other (There is no noted grimace with deep tenderness palpation). No: Guarding, Rigid, Rebound Extremities: Normal Inspection, Normal Range of Motion, Non-Tender, No Pedal Edema, Normal Capillary Refill Neurological: Alert. No: Oriented, CN II-XII Intact Skin Exam: Warm, Dry, Intact, Normal Color, No Rash Course - Vital Signs Text/Narrative:: Chest x-ray no noted pneumonia labs within normal limits 11,000 white count Patient was placed in inpatient admission status under the care of Dr. Valarie Bernstein for respiratory distress and hypoxia Last Recorded V/S: Last Vital Signs Temp 37.4 C 02/27/20 10:00 Pulse 75 02/27/20 10:00 Resp 19 02/27/20 06:00 BP 115/68 02/27/20 10:00 Pulse Ox 94 L 02/27/20 10:00 - Orders/Labs/Meds Labs: Laboratory Tests 02/25/20 02/25/20 02/25/20 Range/Units 11:25 11:25 11:25 WBC 11.9 H (4.0-10.0) x10^3/uL RBC 4.19 L (4.5-6.0) x10^6/uL Hgb 13.9 L D (14.0-18.0) g/dL Hct 41.2 (40.0-52.0) % MCV 98.3 H (78.0-93.0) fL MCH 33.2 H (26.0-32.0) pg MCHC 33.7 (32.0-36.0) g/dL RDW Coeff of Lev 12.8 (10.0-15.0) % Plt Count 204 (130-400) x10^3/uL Neut % (Auto) 90.1 H (50.0-80.0) % Lymph % (Auto) 4.9 L (25.0-50.0) % [place] % (Auto) 4.4 (2.0-11.0) % Eos % (Auto) 0.6 (0.0-4.0) % Baso % (Auto) 0.0 L (0.2-1.2) % Sodium 145 (136-145) mmol/L Potassium 3.7 (3.5-5.1) mmol/L Chloride 106 (98-107) mmol/L Carbon Dioxide 28 (21-32) mmol/L Anion Gap 14.7 (10-20) mmol/L BUN 24 H (7-18) mg/dL Creatinine 0.9 (0.70-1.30) mg/dL Est Cr Clr Drug Dosing TNP Estimated GFR (MDRD) > 60 Glucose 154 H (74-106) mg/dL Lactic Acid 1.9 (0.4-2.0) mmol/L Calcium 8.9 (8.5-10.1) mg/dL Meds: Medications Discontinued Medications Generic Name Dose Route Start Last Admin Trade Name Freq PRN Reason Stop Dose Admin Acetaminophen 650 mg 02/25/20 15:36 Tylenol PO Q4H PRN Pain (Mild 1-3)/fever Acetaminophen 650 mg 02/25/20 15:53 02/25/20 16:20 Tylenol RECTAL 650 mg Q4H PRN Administration Pain (Mild 1-3)/Fever Acetaminophen 650 mg 02/25/20 20:00 02/27/20 13:06 Tylenol PO Not Given TID THAIS Bisacodyl 5 mg 02/25/20 17:12 Dulcolax PO Q3D PRN Constipation Bisacodyl 10 mg 02/25/20 17:12 Dulcolax RECTAL Q4D PRN Constipation Diphenhydramine HCl 25 mg 02/25/20 20:00 02/27/20 09:06 Benadryl PO 25 mg BID THAIS Administration Enoxaparin Sodium 40 mg 02/26/20 08:00 02/27/20 09:04 Lovenox SUBCUT 40 mg DAILY THAIS Administration Clindamycin Phosphate 900 mg/ 106 mls @ 200 mls/hr 02/25/20 11:24 02/25/20 11 :40 Sodium Chloride IV 02/25/20 11:55 200 mls/hr STAT ONE Administration Piperacillin Sod/Tazobactam 100 mls @ 25 mls/hr 02/26/20 00:00 02/27/20 09:03 Sod 3.375 gm/ Sodium Chloride IV 25 mls/hr Q8H THAIS Administration Sodium Chloride 1,000 mls @ 100 mls/hr 02/25/20 15:45 02/26/20 03:17 Normal Saline IV 100 mls/hr ASDIRECTED THAIS Administration Piperacillin Sod/Tazobactam 100 mls @ 200 mls/hr 02/25/20 16:00 02/25/20 16: 03 Sod 4.5 gm/ Sodium Chloride IV 02/25/20 16:29 200 mls/hr ONETIME ONE Administration Lamotrigine 100 mg 02/26/20 08:00 02/27/20 09:05 Lamotrigine PO 100 mg DAILY THAIS Administration Magnesium Hydroxide 30 ml 02/25/20 17:12 Milk Of Magnesia PO DAILY PRN Constipation Melatonin 9 mg 02/25/20 20:00 02/26/20 20:45 Melatonin PO 9 mg BEDTIME THAIS Administration Non-Formulary Medication 1 applic 02/25/20 17:12 Ammonium Lactate [Ammonium Lactate] TOP DAILY PRN Rash Olanzapine 10 mg 02/26/20 08:00 02/27/20 09:05 Zyprexa PO 10 mg DAILY THAIS Administration Olanzapine 20 mg 02/25/20 20:00 02/26/20 20:47 Zyprexa PO 20 mg BEDTIME THAIS Administration Omeprazole 20 mg 02/26/20 06:30 02/26/20 05:55 Omeprazole PO 20 mg Q48H THAIS Administration Ondansetron HCl 4 mg 02/25/20 15:36 Zofran IVPUSH Q8H PRN Nausea Polyethylene Glycol 17 gm 02/26/20 08:00 02/27/20 09:03 Miralax PO 17 gm DAILY THAIS Administration Quetiapine Fumarate 400 mg 02/25/20 20:00 02/26/20 20:46 Seroquel PO 400 mg BEDTIME THAIS Administration Quetiapine Fumarate 200 mg 02/25/20 18:00 02/27/20 13:06 Seroquel PO Not Given TIDMEALS THAIS Senna/Docusate Sodium 2 tab 02/25/20 20:00 02/27/20 09:05 Senna Plus PO 2 tab BID THAIS Administration Trazodone HCl 25 mg 02/26/20 08:00 02/27/20 09:05 Trazodone PO 25 mg DAILY THAIS Administration Trazodone HCl 100 mg 02/25/20 20:00 02/26/20 20:48 Trazodone PO 100 mg BEDTIME THAIS Administration Departure - Departure Time of Disposition: 13:30 Disposition: Admitted As Inpatient 66 Condition: Fair Clinical Impression: Respiratory distress, Hypoxia - Discharge Information *PRESCRIPTION DRUG MONITORING PROGRAM REVIEWED*: No *COPY OF PRESCRIPTION DRUG MONITORING REPORT IN PATIENT ADALGISA: No Sepsis Event Note - Focused Exam Date Exam was Performed: 02/27/20 Time Exam was Performed: 15:14 - Problem List & Annotations (1) Hypoxia SNOMED Code(s): 857152377 Code(s): R09.02 - HYPOXEMIA Status: Acute (2) Respiratory distress SNOMED Code(s): 843327542 Code(s): R06.03 - ACUTE RESPIRATORY DISTRESS Status: Acute
--- NOTE | 2020-02-25 11:54 | CR ---
[id number] RAD/RAD Chest PA or AP 1V EXAM: SINGLE VIEW CHEST. INDICATION: SHORTNESS OF BREATH FEVER POSSIBLE ASPIRATION COMPARISON: CORRELATION IS MADE WITH SEPTEMBER 04, 2019 FINDINGS: The lungs are clear The cardiomediastinal contour is stable There is volume loss at the left lung base There is bowel distention IMPRESSION: NO PNEUMONIA. Vishnu Martin MD 02/25/20 2026 Thank you for allowing us to participate in the care of your patient.
[2020-02-25 11:57] LABS: ANION GAP 14.7 mmol/L (10-20); CHLORIDE,CL 106 mmol/L (98-107); SODIUM,NA 145 mmol/L (136-145)
[2020-02-25] MEDS ORDERED: Ondansetron 4 MG/2 ML SDV IVPUSH PRN (15:36)
[2020-02-25] MEDS ORDERED: Acetaminophen 325 MG Tab PO PRN (15:36)
[2020-02-25] MEDS ORDERED: Acetaminophen 650 MG Supp RECTAL PRN (15:53)
[2020-02-25] MEDS ORDERED: Piperacillin/Tazobactam 3.375 GM in Sodium Chloride 0.9% 100 ML IV ONE (16:00)
[2020-02-25] MEDS ORDERED: Piperacillin/Tazobactam 4.5 GM in Sodium Chloride 0.9% 100 ML IV ONE (16:00)
[2020-02-25] MEDS: Sodium Chloride 0.9% 1,000 ML IV SCH (16:04)
[2020-02-25] MEDS ORDERED: Magnesium Hydroxide 400 MG/5 ML Susp 30 ML Cup PO PRN (17:12)
[2020-02-25] MEDS ORDERED: Bisacodyl 5 MG Tab PO PRN (17:12)
[2020-02-25] MEDS ORDERED: AMMONIUM LACTATE TOP PRN (17:12)
[2020-02-25] MEDS ORDERED: Bisacodyl 10 MG Supp RECTAL PRN (17:12)
[2020-02-25] MEDS: QUEtiapine 100 MG Tab PO SCH ×2 (19:18→20:51)
[2020-02-25] MEDS: Acetaminophen 325 MG Tab PO SCH (20:49)
[2020-02-25] MEDS: diphenhydrAMINE 25 MG Cap PO SCH (20:49)
[2020-02-25] MEDS: OLANZapine 10 MG Tab PO SCH (20:50)
[2020-02-25] MEDS: Melatonin 3 MG Tab PO SCH (20:50)
[2020-02-25] MEDS: traZODone 50 MG Tab PO SCH (20:51)
[2020-02-25] MEDS: Piperacillin/Tazobactam 3.375 GM in Sodium Chloride 0.9% 100 ML IV SCH (23:12)
[2020-02-26] MEDS: Sodium Chloride 0.9% 1,000 ML IV SCH (03:17)
[2020-02-26] MEDS ORDERED: Omeprazole 20 MG Cap.CR PO SCH (06:30)
[2020-02-26 07:20] LABS: ANION GAP 12.9 mmol/L (10-20); CHLORIDE,CL 110 mmol/L (98-107); SODIUM,NA 146 mmol/L (136-145)
[2020-02-26] MEDS: Polyethylene Glycol 3350 Powder 17 GM Packet PO SCH (07:53)
[2020-02-26] MEDS: Enoxaparin 40 MG/0.4 ML Syringe SUBCUT SCH (07:53)
[2020-02-26] MEDS: Piperacillin/Tazobactam 3.375 GM in Sodium Chloride 0.9% 100 ML IV SCH ×3 (07:53→23:17)
[2020-02-26] MEDS: diphenhydrAMINE 25 MG Cap PO SCH ×2 (07:53→20:47)
[2020-02-26] MEDS: lamoTRIgine 100 MG Tab PO SCH (07:54)
[2020-02-26] MEDS: OLANZapine 10 MG Tab PO SCH ×2 (07:54→20:47)
[2020-02-26] MEDS: Acetaminophen 325 MG Tab PO SCH ×3 (07:54→20:48)
[2020-02-26] MEDS: traZODone 50 MG Tab PO SCH ×2 (07:54→20:48)
[2020-02-26] MEDS: QUEtiapine 100 MG Tab PO SCH ×4 (07:54→20:46)
--- NOTE | 2020-02-26 10:56 | PN ---
Progress Note for LUANN LAZCANO Date: 02/26/2020 Room #: VM.217 SUBJECTIVE: This is hospital day #2 on a 59-year-old, admitted after vomiting with presumed aspiration pneumonia. The patient has had no further vomiting. He has had fevers, last at 6 p.m. He is up, more alert this morning, eating breakfast, taking his pills. He has underlying dementia. His speech is tangential and hard to understand at times, but he was smiling. When I asked if he had abdominal pain and pushed on his stomach, he said yes, but he did not appear to grimace in any pain. He did not seem uncomfortable. He was coughing while we were in the room. OBJECTIVE: Vital Signs: His temperature is 98.4, pulse 87, blood pressure 123/74, respiratory rate 22, O2 of 94% on 3 L. Tmax 101.5 at 1800 General: He is in no acute distress. Heart: Regular rate and rhythm. S1 and S2 without murmur. Lungs: Sounds were decreased and crackly over the left base. After he took a couple of cough, it then cleared up and they were mostly clear throughout. Abdomen: Mildly distended but positive bowel sounds, and again he did state that he had some pain but was smiling and sort of joking with us as well. Extremities: Warm and dry. No edema. Mental Status: He is unable to answer orientation questions. LABORATORY DATA: His lab work did show his white count down to 8.9, hemoglobin 11.8, platelets 148. All lines were down, possibly hemodilution. Sodium 146, potassium 3.9, chloride 110, bicarb 27, BUN 26, creatinine 0.9. UA negative. Calcium 8.5. ASSESSMENT AND PLAN: 1. An episode of vomiting with aspiration, likely aspiration pneumonia. 2. Sepsis due to aspiration pneumonia. 3. Underlying Lewy body and frontotemporal dementia. 4. Acute hypoxic respiratory failure due to pneumonia, improving. 5. Anxiety and Depression PLAN: At this point, the patient will continue acute cares with IV Zosyn. We will await further blood cultures. His oxygenation status is improving. No indication to repeat a chest x-ray since he is improving. His initial one actually did not show any infiltrates yet. We will continue Lovenox for deep vein thrombosis prophylaxis. We will continue his home medications for moods. Stop IV fluids he is eating. Anticipate back to [facility] as soon as tomorrow I overheard the nurse also updating his on the phone. MKA: 02/26/2020 08:50:29 MODL: 02/26/2020 09:19:52 /[id number] MTDD
--- NOTE | 2020-02-26 11:57 | HP ---
CHIEF COMPLAINT: Aspiration. HISTORY OF PRESENT ILLNESS: This is a 59-year-old male with frontotemporal and Lewy body dementia, who lives at the [facility], who was vomiting during the night per nursing notes. Then, this morning, his saturations were 78% on room air. He was short of breath. He had a temp of 99.3, and crackles to his lung sounds. Prior to this, he had been constipated, but had some diarrhea overnight and had a formed bowel movement this morning. His emesis was brown and orange in color. He had a total of 3 vomits per them. No fevers. Normally, the patient had been up walking in his unit. In August, he was admitted with sepsis due to UTI. He otherwise cannot give me any further history. I did speak with his . It sounds like he had been doing okay up until this episode. His last weight on file at the clinic was 197 pounds, which was up actually 15 pounds in 6 months. ALLERGIES: Include Levaquin, a rash; Augmentin, nausea, vomiting, diarrhea; Demerol, fever, chills, and sweating. MEDICATIONS: His medication list is reviewed and does show him to be on Tylenol 650 t.i.d., albuterol inhaler, topical ammonium lactate, bisacodyl every 3 days p.r.n. and rectal suppository every 4 days p.r.n. for constipation, Benadryl 25 b.i.d., lamotrigine 100 daily, milk of mag 30 mL daily, melatonin 10 mg at bedtime, Biofreeze ointment q.i.d. p.r.n., multivitamin daily, olanzapine 10 mg in the morning, 20 at bedtime, Prilosec 20 mg every other day, MiraLAX daily, quetiapine or Seroquel 400 at bedtime, 200 t.i.d., senna S 2 tabs b.i.d., trazodone 25 mg daily and 100 at bedtime. PAST MEDICAL HISTORY: Includes dementia with behavioral disturbance, frontotemporal since 2013. Also reported to be Lewy body dementia with psychosis. He has a history of depression and anxiety, dysphagia, but no aspiration pneumonias reported since moving to [facility]. Essential hypertension, but off medications due to hypotension. History of colon polyps, history of angina and smoking, seasonal allergies. SOCIAL HISTORY: The patient is . He moved to [facility] in 2019. FAMILY HISTORY: Both parents are . His father did have Alzheimer's. His mother had dementia. REVIEW OF SYSTEMS: Unobtainable due to patient condition and dementia. However, per chart review, he has had weight gain. SURGICAL HISTORY: Endoscopies and colonoscopies and a cervical diskectomy in C6- 7. PHYSICAL EXAMINATION: Vital Signs: Currently, when I saw the patient at the hospital for admission, he actually had a weight of 90.4 kg. His temp was 101.5, pulse 107, blood pressure 136/88, respiratory rate 24, and O2 was 89% on 10 L. General: He is in no acute distress. He is quite somnolent. He is mildly pale. He is leaning off slightly to the right side. He does respond only to painful stimuli, but is not able to speak or give me any answers to questions. Abdomen: Does appear distended, but has positive bowel sounds. It is soft, nontender. Extremities: Warm and dry. There was no edema. He is moving his arms, but he is not following commands. He did sort of squeeze with his right hand my hand, which might have been following commands just slightly. Heart: Regular rate and rhythm. S1, S2 without murmur. Lungs: His lung sounds on a limited exam due to patient effort were clear. I did not hear any crackles or wheezes. Mental Status: He is completely disoriented. He is somnolent. LABORATORY WORK: Does show his white count up to 11.9, hemoglobin 13.9, platelets are 204. Sodium 145, potassium 3.7, chloride 106, bicarb 28, BUN 24, creatinine 0.9, glucose 154, lactic 1.9, calcium 8.9. UA was completely negative other than dark urine. Chest x-ray did not show any pulmonary edema or infiltrates. His stomach did appear to be quite distended. ASSESSMENT: 1. Sepsis. Likely cause would be an aspiration pneumonia. Cause for vomiting is unknown. He also had diarrhea, could be a gastroenteritis. It appears to have stopped now. If he has further vomiting, would do abdominal x-rays and consider placing an NG if a small bowel obstruction was found. 2. Advanced dementia with history of behavioral disturbance. We will continue his home medications. 3. Lethargy due to infection. 4. History of hypertension. He is off medications. 5. Dehydration, probably due to poor oral intake and recent vomiting. 6. Constipation. We will continue home medications. PLAN: At this point, the patient will be admitted to acute cares. I will place him on IV Zosyn. His intolerance with nausea, vomiting, diarrhea previously with Augmentin. I feel this is a better drug than the clindamycin he got in ER. He has a repeat lactic acid ordered. He will be on Lovenox for DVT prophylaxis. I will give him IV fluids and monitor his blood work. I had spoken with his about potentially sending him back to the [place] [facility], which she was okay with if they were able to take care of him. However, they cannot accommodate him for 10 L of oxygen. We will wean oxygen as able. Overall, his condition is quite guarded. If his condition worsens, he would go on full comfort cares. Therefore, also listed palliative care as one of the patient's assessments. MKA: 02/25/2020 17:19:10 MODL: 02/25/2020 21:11:18 /[id number]
[2020-02-26] MEDS: Melatonin 3 MG Tab PO SCH (20:45)
[2020-02-27 07:22] LABS: CHLORIDE,CL 111 mmol/L (98-107); SODIUM,NA 145 mmol/L (136-145)
[2020-02-27 07:24] LABS: ANION GAP 10.8 mmol/L (10-20)
[2020-02-27] MEDS: Polyethylene Glycol 3350 Powder 17 GM Packet PO SCH (09:03)
[2020-02-27] MEDS: Piperacillin/Tazobactam 3.375 GM in Sodium Chloride 0.9% 100 ML IV SCH (09:03)
[2020-02-27] MEDS: Acetaminophen 325 MG Tab PO SCH ×2 (09:03→13:06)
[2020-02-27] MEDS: Enoxaparin 40 MG/0.4 ML Syringe SUBCUT SCH (09:04)
[2020-02-27] MEDS: OLANZapine 10 MG Tab PO SCH (09:05)
[2020-02-27] MEDS: traZODone 50 MG Tab PO SCH (09:05)
[2020-02-27] MEDS: lamoTRIgine 100 MG Tab PO SCH (09:05)
[2020-02-27] MEDS: diphenhydrAMINE 25 MG Cap PO SCH (09:06)
[2020-02-27] MEDS: QUEtiapine 100 MG Tab PO SCH ×2 (09:14→13:06)
--- NOTE | 2020-02-27 22:08 | DISCH ---
PRIMARY DISCHARGE DIAGNOSES: 1. Sepsis due to aspiration pneumonia after episodes of vomiting, unknown cause of vomiting. 2. Underlying Lewy body and frontotemporal dementia. 3. Acute hypoxic respiratory failure due to the episode of aspiration. 4. Underlying anxiety and depression. 5. History of hypertension, but not requiring any medications. 6. Mild hypernatremia, resolved with IV fluids. He has been off fluids prior to discharge. 7. Dehydration. He was given IV fluids. 8. Constipation prior to the vomiting. He had no bowel movements here, but he was not eating on his first day, but 100% of his meals yesterday. His abdomen was not distended. He was not uncomfortable. REASON FOR ADMISSION: On the date of admission, this 59-year-old male had been vomiting during the night. His O2 sats were like 78% in the morning. There was no reported fevers, but then he got over here and his temp was 101.5. After a couple of hours, his heart rate was 117. His white count was 11.9. He was felt to be septic. He was given IV clindamycin. He had COVID testing that was negative. He was switched over to IV Zosyn. He does have an intolerance with nausea from Augmentin. However, he tolerated the IV Zosyn just fine. He received IV fluids. Those were discontinued. He was eating and drinking on his own. He was taking his medications. Overall, he was doing better and felt to be stable for discharge. His last temperature was 101.5 on 02/24 at 6 p.m. He has had no fever since. PHYSICAL EXAMINATION: Vital Signs: Objectively, on discharge, his temperature is 99.2, pulse 78, blood pressure 112/68, respiratory rate 19, O2 of 93% on room air. General: He is in no acute distress. Heart: Regular rate and rhythm. S1, S2 without murmur. Lungs: Lung sounds do sound clear to auscultation, but the patient is not making any extra respiratory effort. Abdomen: Nondistended. Positive bowel sounds. Nontender. Extremities: Warm and dry. No edema. Mental Status: He is quite somnolent this morning, but he does open his eyes to command. He has not been woken up for his meal yet. Otherwise, he was on DVT prophylaxis during his stay. LABORATORY DATA: His hemoglobin did trend down to 10.1, which was felt to be possibly due to some hemodilution. It was 13.9 on admission, but he was felt to be dehydrated. It was 11.8 yesterday. He had no signs of bleeding. His white count normalized. Otherwise, the sodium was 145 on discharge. His creatinine was normal. He also had a UA done while he was here, which was negative for infection. He had been previously admitted a few months ago for a UTI. DISCHARGE PLANS AND INSTRUCTIONS: He is going back to [facility] due to his intolerance to oral Augmentin. We will give him clindamycin 300 t.i.d. x2 more days. We will encourage him to have yogurt for 2 weeks to prevent diarrhea. He will resume all [facility] standing orders and his home medications. He will be rechecked on next scheduled longterm rounds. No additional lab work is due. He may resume his previous lab schedule. He will be seen by PT, OT, and Speech at [facility]. Oxygen will only be used if needed. If sats fall under 90%, he will get 2 L. Also, COVID testing will be done and is pending on the time of discharge. Otherwise, greater than 30 minutes spent on this discharge process. MKA: 02/27/2020 08:53:36 MODL: 02/27/2020 20:56:48 /[id number]
== END 2020-02-27 13:45 | DRG 871 ==
LOC: VM.ED 11:46 → VM.MS 13:29
PROVIDERS: ADMIT Internal Medicine; ATTEND Internal Medicine
DX: R06.03 Acute respiratory distress (principal); R09.02 Hypoxemia; J45.909 Unspecified asthma, uncomplicated; A41.9 Sepsis, unspecified organism; J69.0 Pneumonitis due to inhalation of food and vomit; J96.01 Acute respiratory failure with hypoxia; F02.80 Dementia in other diseases classified elsewhere, unspecified severity, without behavioral disturbance, psychotic disturbance, mood disturbance, and anxiety; E87.0 Hyperosmolality and hypernatremia; F02.81 Dementia in other diseases classified elsewhere, unspecified severity, with behavioral disturbance; F29 Unspecified psychosis not due to a substance or known physiological condition; Z88.6 Allergy status to analgesic agent; F41.9 Anxiety disorder, unspecified; F32.9 Major depressive disorder, single episode, unspecified; I10 Essential (primary) hypertension; E86.0 Dehydration; Z20.828 Contact with and (suspected) exposure to other viral communicable diseases; Z88.1 Allergy status to other antibiotic agents; Z88.8 Allergy status to other drugs, medicaments and biological substances; G31.83 Neurocognitive disorder with Lewy bodies; Z86.010 Personal history of colon polyps; Z87.891 Personal history of nicotine dependence; Z88.5 Allergy status to narcotic agent; Z79.899 Other long term (current) drug therapy; K59.09 Other constipation
CPT/HCPCS: 36415; 71045; 80048; 83605; 85025; 87040 ×2; 96365; 99285; J3490; J7050; 81003; 94760; 99284-GF; A9270-GY; J1650; J2543; J7030; U0002